=== PATIENT | female | born 1960 | race American Indian/Alaskan Native ===

== ENCOUNTER 2019-07-16 11:59 | Emergency (ER) | payer OTHER ==
[2019-07-16 12:11] VITALS: BP 151/79
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
== END 2019-07-16 12:53 | disposition left against medical advice (07) ==
LOC: ED 11:59
DX: M54.2 Cervicalgia (principal); V49.69XA Unspecified car occupant injured in collision with other motor vehicles in traffic accident, initial encounter; Y93.89 Activity, other specified; Y92.410 Unspecified street and highway as the place of occurrence of the external cause; Y99.8 Other external cause status
CPT/HCPCS: 99281